=== PATIENT | female | born 1960 | race Hispanic/Latino ===

== ENCOUNTER → 2018-10-14 | Outpatient (CLI) | payer BC ==
[~2018-10-14] MED LIST: AMLO5TAB7 PO; ASPI-1197 PO; LOVA10TA2 PO
== END | disposition home or self-care (01) ==
LOC: SHCH 10:59
PROVIDERS: ATTEND Internal Medicine Cardiovascular Disease
DX: I65.22 Occlusion and stenosis of left carotid artery (principal)
CPT/HCPCS: 93880

== ENCOUNTER 2025-07-20 19:27 | Emergency (ER) | payer BC ==
[~2025-07-20] VITALS: Ht 149.9 cm; Wt 76.2 kg
[~2025-07-20 19:27] MED LIST changes: +AMLO-257 PO; -AMLO5TAB7 PO
--- NOTE | 2025-07-20 19:37 | ERN ---
ED Note History of Present Illness Stated Complaint: C/O "THROBBING HEADACHE," CHEST PRESSURE, W/NAUSEA Chief Complaint: Chest Pain Time Seen by MD: 19:29 Dictation: PATIENT IS A 64-YEAR-OLD FEMALE COMING IN TODAY STATES SHE HAD AN ONSET OF CHEST PAIN PRESSURE THAT RADIATES TO HER RIGHT UPPER CHEST ONSET AT 15:30 THIS AFTERNOON WHILE SHE WAS AT WORK. SHE STATES SHE HAS HAD NAUSEA. SHE ALSO IS COMPLAINING OF A GENERALIZED HEADACHE. STATES SHE TOOK HER LISINOPRIL AND HER AMLODIPINE THIS MORNING SHE NORMALLY DOES. NIH IS 0 ON APPROACH. SHE IS INSTILL INDICATING SHE IS HAVING PAIN TO HER RIGHT ANTERIOR CHEST. Allergies: Coded Allergies: No Known Drug Allergies (Unverified Allergy, Unknown, 03/03/17) Home Meds Reported Medications Aspirin (Aspirin) 81 Mg Tab.chew, 81 MG PO DAILY, TAB.CHEW 03/03/17 Amlodipine Besylate (Amlodipine Besylate) 5 Mg Tablet, 5 MG PO DAILY, TAB 03/03/17 Lovastatin (Lovastatin) 10 Mg Tablet, 10 MG PO HS, TAB 03/03/17 Past Medical History Past Medical History: High Cholesterol, Hypertension Surgical History: Other Surgical History Other: BRAIN SX (2020); CAROTID SX History: Not Applicable RN Note Reviewed/Agreed w/PFSH: Yes Review of System Dictation CONSTITUTIONAL: NEGATIVE EXCEPT FOR HPI HEAD/FACE: NEGATIVE EXCEPT FOR HPI EENT: NEGATIVE EXCEPT FOR HPI RESPIRATORY: NEGATIVE EXCEPT FOR HPI CHEST PAIN/PRESSURE GASTROINTESTINAL/ABDOMINAL: NEGATIVE EXCEPT FOR HPI NAUSEA GENITOURINARY: NEGATIVE EXCEPT FOR HPI MUSCULOSKELETAL: NEGATIVE EXCEPT FOR HPI INTEGUMENTARY: NEGATIVE EXCEPT FOR HPI NEUROLOGICAL/PSYCH: NEGATIVE EXCEPT FOR HPI GENERALIZED HEADACHE HEMATOLOGIC/LYMPHATIC: NEGATIVE EXCEPT FOR HPI ALL SYSTEMS NEGATIVE, EXCEPT NOTED ABOVE. 13 POINT REVIEW OF SYSTEMS ASSESSED AND ALL NEGATIVE EXCEPT FOR ABOVE. Initial Vital Sign VS Vital Signs Date Time Temp Pulse Resp B/P (MAP) Pulse Ox O2 Delivery O2 Flow Rate FiO2 07/20/25 19:29 97.9 90 20 171/78 99 Room Air 07/20/25 19:52 0 21 Physical Exam Dictation VITAL SIGNS REVIEWED GENERAL APPEARANCE: ALERT, ORIENTED X 3, MILD ACUTE DISTRESS, WELL DEVELOPED, NOURISHED. HEAD AND FACE: NON-TRAUMATIC. EYES: PERRL, PINK CONJUNCTIVAS, EYELID NO TRAUMA, ANTERIOR CHAMBER WITH ARCUS SENILIS. EARS: PINNAS INTACT AND NO SIGNS OF TRAUMA OR ERYTHEMA EAR CANALS CLEAR AND NO DISCHARGE TM NO ERYTHEMA NOSE: NO DISCHARGE, NO BLEEDING. OROPHARYNX: MOUTH NORMAL, TONGUE PINK, PHARYNX CLEAR,NO ERYTHEMA, TONSILS NO EXUDATES, NO ABSCESSES NOTED, MUCOUS MEMBRANE MOIST NECK: SUPPLE, NON-TENDER, NO THYROMEGALY, NO MASSES, NO JVD, NO BRUITS BREAST:DEFERRED CHEST:NO TENDERNESS, NO CREPITUS, NO PARADOXICAL MOVEMENT, NO RETRACTIONS LUNGS:CLEAR, WELL-VENTILATED, SYMMETRIC, NO RALES, NO WHEEZING, NO RHONCHI, NO STRIDOR, GOOD BREATH SOUNDS BILATERALLY HEART: REGULAR RATE, REGULAR RHYTHM, NO MURMUR, NO GALLOPS VASCULAR: NO PERIPHERAL EDEMA, ABDOMEN: SOFT, POSITIVE BOWEL SOUNDS, NONDISTENDED, NO GUARDING, NONTENDER, NO REBOUND, NO MASSES NO HEPATOMEGALY, NO SPLENOMEGALY, NO ALONSO'S SIGN, NO HERNIAS. RECTAL: DEFERRED GENITAL: DEFERRED NEUROLOGICAL: NORMAL SPEECH, MOTOR FUNCTION INTACT, SENSORY FUNCTION INTACT NIH IS 0 ON APPROACH MUSCULOSKELETAL: NECK NONTENDER, FULL RANGE OF MOTION, BACK NONTENDER, FULL RANGE OF MOTION, EXTREMITIES: NONTENDER, FULL RANGE OF MOTION SKIN: COLOR PINK, DRY, NO TURGOR, NO RASH, NO LACERATIONS, NO ABRASIONS, NO CONTUSIONS. LYMPHATIC: DEFERRED Results (Laboratory/Radiology) Laboratory/Radiology Laboratory Tests Test 07/20/25 19:50 07/20/25 20:54 White Blood Count 6.8 K/uL (4.8-10.8) Red Blood Count 4.16 MIL/uL (4.00-5.50) Hemoglobin 13.1 g/dL (12.0-16.0) Hematocrit 37.3 % (36-48) Mean Corpuscular Volume 89.7 fL (79-99) Mean Corpuscular Hemoglobin 31.5 pg (27.0-33.0) Mean Corpuscular Hemoglobin Concent 35.1 g/dL (32.0-36.0) Red Cell Distribution Width 12.4 % (11.0-15.5) Platelet Count 205 K/uL (130-400) Mean Platelet Volume 11.1 fL (7.5-10.5) H Immature Granulocyte % (Auto) 0.4 % (0-1) Neutrophils (%) (Auto) 72.5 % (40.0-77.0) Lymphocytes (%) (Auto) 21.3 % (21.0-51.0) Monocytes (%) (Auto) 4.6 % (3.0-13.0) Eosinophils (%) (Auto) 0.6 % (0.0-8.0) Basophils (%) (Auto) 0.6 % (0.0-5.0) Neutrophils # (Auto) 4.9 K/uL (1.8-7.7) Lymphocytes # (Auto) 1.4 K/uL (1.0-4.8) Monocytes # (Auto) 0.3 K/uL (0.1-1.0) Eosinophils # (Auto) 0.04 K/uL (0.00-0.70) Basophils # (Auto) 0.04 K/uL (0.00-0.20) Absolute Immature Granulocyte (auto 0.03 K/uL (0-1) Nucleated Red Blood Cells 0.0 % (0.0-0.19) Sodium Level 133 mmol/L (136-145) L Potassium Level 3.7 mmol/L (3.5-5.1) Chloride Level 100 mmol/L (101-111) L Carbon Dioxide Level 24 mmol/L (21-32) Blood Urea Nitrogen 18 mg/dL (7-18) Creatinine 0.8 mg/dL (0.5-1.0) Glomerular Filtration Rate Calc 82 mL/min (>90) Random Glucose 148 mg/dL (70-105) H Total Calcium 9.0 mg/dL (8.5-10.1) Magnesium Level 2.00 mg/dL (1.80-2.40) Troponin I High Sensitivity 6 ng/L (4-50) 6 ng/L (4-50) 2030/CHEST X-RAY NEGATIVE Labs Reviewed?: Yes EKG Comment: - EKG SINUS RHYTHM/HEART RATE 80 SAYS/LEFT ATRIAL ENLARGEMENT/NO ECTOPY\\ EKG NORMAL SINUS BRADYCARDIA/HEART RATE 58/AXIS NORMAL/NO ECTOPY 2124/ HIGH SENSITIVITY TROPONIN A SIX, HEART SCORE IS THREE NO CHANGE FROM INITIAL EKG WITH A HEART SCORE ED Course ED Course Orders Procedure Category Date Status Time Cbc With Differential LAB 07/20/25 Complete 19:33 Chest 1vw RAD 07/20/25 Resulted 19:33 12 Lead Ekg Tracing- EKG 07/20/25 Logged Technical 19:33 Nitroglycerin 0.4mg PHA 07/20/25 In Process Sl Tab (Nitrostat) 20:00 Magnesium LAB 07/20/25 Complete 19:33 Troponin I High LAB 07/20/25 Complete Sensitivity 19:33 Aspirin 325mg Tab PHA 07/20/25 Complete (Aspirin 325mg Tab) 20:00 Basic Metabolic Panel LAB 07/20/25 Complete 19:33 12 Lead Ekg Tracing- EKG 07/20/25 Logged Technical 20:49 Troponin I High LAB 07/20/25 Complete Sensitivity 20:49 Current Medications Medications (Trade) Dose Ordered Sig/Otis Route PRN Reason Start Time Stop Time Status Last Admin Dose Admin Aspirin (Aspirin 325mg Tab) 325 mg ONCE ONCE PO 07/20/25 20:00 07/20/25 20:01 DC 07/20/25 19:49 Nitroglycerin (Nitrostat) 0.4 mg Q5M PRN SL CHEST PAIN 07/20/25 20:00 07/20/25 19:50 Vital Signs Date Time Temp Pulse Resp B/P (MAP) Pulse Ox O2 Delivery O2 Flow Rate FiO2 07/20/25 19:52 98.2 83 16 136/73 100 Room Air* 0 21 07/20/25 19:29 97.9 90 20 171/78 99 Room Air 2128/PATIENT STATES SHE HAS NO PAIN AT THIS TIME. ADDITIONALLY SHE IS HEMODYNAMICALLY STABLE FOLLOW UP BLOOD PRESSURE 136/73. SHE DOES NOT WISH TO BE ADMITTED TO THE HOSPITAL AT THIS TIME STRONGLY ADVISED TO FOLLOW UP WITH HER PRIMARY CARE DOCTOR OR RETURN TO THE EMERGENCY ROOM IF ANY CHANGES. HEART Score Response (Comments) Value EKG: Repolarization changes 1 Age: 45-65yrs (+1) 1 Risk Factors: 1-2 risk factors (+1) 1 Initial Troponin: Normal limit (0) 0 Total 3 CHADS-VASc Score Response (Comments) Value Sex: Female (+1) 1 Hypertension Hx: Yes (+1) 1 Total 2 Medical Decision Making MDM MDM: DIFFERENTIAL DIAGNOSIS: ACS/AMI/ELECTROLYTE IMBALANCE/DEHYDRAT ION/PNEUMONIA/BRONCHITIS/HYPOMAGNESEMIA/MUSCLE PAIN RATIONALE: TESTS CONSIDERED AND ORDERED SECONDARY TO SHARED DECISION MAKING INCLUDE: EKG/LABS/RADIOLOGY PREVIOUS OUTSIDE RECORDS REVIEWED: OLD ER VISITS. RISK OF COMPLICATION AND/OR MORBIDITY OR MORTALITY OF PATIENT MANAGEMENT: NONE MEDICATIONS-PER MEDICATION RECONCILIATION NEED FOR HOSPITALIZATION: PATIENT DOES NOT MEET CRITERIA FOR HOSPITALIZATION. PATIENT REFUSED, WISHES TO GO HOME AND WE WILL FOLLOW UP WITH HER PRIMARY CARE DOCTOR. NEED FOR EMERGENCY MAJOR/MINOR SURGERY: NO THERE ARE NO SOCIAL CONCERNS WITH THIS PATIENT. PRESCRIPTION DRUG MANAGEMENT PRESCRIPTIONS WILL INCLUDE SYMPTOMATIC CARE PATIENT'S PRIOR EXTERNAL MEDICAL RECORDS FROM OTHER ER VISITS WERE REVIEWED BY ME INDICATED. PRIOR TESTING AND RESULTS FROM PREVIOUS VISITS WERE REVIEWED. PRIOR TESTS WERE TAKEN INTO ACCOUNT WITH MEDICAL DECISION MAKING AND RESOURCE UTILIZATION, INDEPENDENT HISTORIAN/HISTORIANS WERE USED TO OBTAIN COMPLETE MEDICAL HISTORY. I INDEPENDENTLY INTERPRETED THE TEST THAT WERE PERFORMED, RESULTS WERE REVIEWED BY ME AND CONSIDERED FINDINGS ON RADIOLOGY IF ORDERED. MEDICAL MANAGEMENT AND EXAMINATION INTERPRETATION DISCUSSIONS WERE HAD BY ME WITH OTHER QUALIFIED HEALTHCARE PROFESSIONALS INDICATED FOR THE PATIENT'S CARE. DX & DISP Disposition: Discharge Departure Impression: Primary Impression: Atypical chest pain Additional Impressions: Hyponatremia, Dehydration, Hyperglycemia Condition: Stable Additional Instructions: FOLLOW-UP WITH PRIMARY CARE PROVIDER IN 1 TO 2 DAYS. TAKE MEDICATIONS DIRECTED HERE IN THE EMERGENCY ROOM. OKAY TO CONTINUE HOME MEDICATIONS UNLESS OTHERWISE DISCUSSED DURING YOUR VISIT IN THE EMERGENCY ROOM TODAY. RETURN TO YOUR NEAREST EMERGENCY ROOM IF SYMPTOMS WORSEN OR IF THERE IS NO IMPROVEMENT. CALL 911 IF YOU NEED IMMEDIATE ASSISTANCE. TAKE TYLENOL OR MOTRIN [id number] NEEDED AND IF NO CONTRAINDICATIONS ARE PRESENT. INCREASE ORAL HYDRATION. A WOUND CULTURE OR URINE CULTURE WAS ORDERED HERE IN THE EMERGENCY ROOM DEPARTMENT PLEASE FOLLOW-UP WITH PRIMARY CARE PROVIDER AND ADVISE THEM TO GET REPEAT PORTS FROM OUR FACILITY. IF YOU HAD ANY EDWARD WRAP/SPLINTS THAT WERE APPLIED HERE, PLEASE DO NOT REMOVE THEM UNTIL YOU SEE YOUR PRIMARY CARE OR SPECIALTY. DIET AND ACTIVITY TOLERATED., FOLLOW UP WITH YOUR PRIMARY CARE DOCTOR IN THE NEXT 1-2 DAYS. RETURN TO THE EMERGENCY ROOM IF CHEST PAIN IN THE MIDDLE OF YOUR CHEST NAUSEA VOMITING BACK PAIN JAW PAIN ARM PAIN. Referrals: PREETI ZHU (PCP) Time of Disposition: 21:29 I have reviewed the case, and I agree with, Diagnosis and Plan SAUNDRA HOANG NP Jul 20, 2025 19:36
[2025-07-20] MEDS: ASPIRIN 325MG TAB PO ONE (19:49)
[2025-07-20] MEDS: NITROGLYCERIN 0.4 MG SL TAB SL PRN (19:50)
[2025-07-20 19:58] LABS: IMMATURE GRANULOCYTE ABSOLUTE 0.03 K/uL (0-1); NUCLEATED RED BLOOD CELLS 0.0 % (0.0-0.19); PLATELET COUNT (AUTO) 205 K/uL (130-400); RED BLOOD CELL COUNT(AUTO) 4.16 MIL/uL (4.00-5.50); RED CELL DISTRIBUTION WIDTH 12.4 % (11.0-15.5); WHITE BLOOD COUNT (AUTO) 6.8 K/uL (4.8-10.8)
[2025-07-20 20:05] LABS: CREATININE 0.8 mg/dL (0.5-1.0); GLOMERULAR FILTR. RATE CALC 82.0 mL/min (>90); GLUCOSE,RANDOM 148.0 mg/dL (70-105); SODIUM SERUM 133.0 mmol/L (136-145); UREA NITROGEN, BLOOD 18.0 mg/dL (7-18)
--- NOTE | 2025-07-20 20:46 | HMCIMG ---
EXAM: CR Chest, 1 View. CLINICAL HISTORY: CHEST PAIN COMPARISON: None provided. FINDINGS: LUNGS: The lungs show no infiltrate or other acute finding. PLEURAL SPACES: No pleural effusion or pneumothorax. MEDIASTINUM: The cardiomediastinal silhouette is within normal limits. BONES: No aggressive appearing osseous lesion seen. IMPRESSION: No acute cardiopulmonary pathology is evident. /[place]
[2025-07-20 21:29] VITALS: BP 141/75; PULSE 78; RESP 16; TEMP 98.3; O2SAT 100
--- NOTE | 2025-07-21 06:31 | EKG ---
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
--- NOTE | 2025-07-21 06:31 | EKG ---
[facility] Test Date: 2025-07-20 Test Time: 19:40:39 Pat Name: YOANDY DELGADILLO Department: [facility] Room: Gender: F Education Intern: GARRET : 1960 Requested By: SAUNDRA HOANG Order Number: [id number] Reading MD: Jhon Thompson Measurements Intervals [place] Rate: 86 P: 61 [place]: 139 QRS: 51 QRSD: 87 T: -20 QT: 399 QTc: 477 Interpretive Statements Sinus rhythm Probable left atrial enlargement Compared to ECG 03/03/2017 12:03:51 Short [place] interval no longer present Electronically Signed On 07-21-2025 13:38:20 CDT by Jhon Thompson Please click the below link to view image of tracing.
== END 2025-07-20 21:47 | disposition home or self-care (01) ==
LOC: EDH 19:27
DX: R07.89 Other chest pain (principal); E87.1 Hypo-osmolality and hyponatremia; E86.0 Dehydration; R73.9 Hyperglycemia, unspecified; E78.00 Pure hypercholesterolemia, unspecified; I10 Essential (primary) hypertension; Z79.82 Long term (current) use of aspirin
CPT/HCPCS: 36415; 71045; 80048; 83735; 84484; 85025; 93005; 99283; 99284